=== PATIENT | female | born 1970 | race Hispanic/Latino ===

== ENCOUNTER 2020-12-13 16:01 | Emergency (ER) | payer SELFPAY ==
[~2020-12-13] VITALS: Ht 195.6 cm; Wt 113.4 kg
[2020-12-13] MEDS ORDERED: HYDROCODONE/ACETAMINOPHEN 10/325 MG TAB PO ONE (18:15)
[2020-12-13] MEDS ORDERED: TRAM1TAB PO (19:00)
[2020-12-13 19:15] VITALS: BP 132/79
[2020-12-13] MEDS ORDERED: NAPR-1180 PO (19:24)
== END 2020-12-13 19:33 | disposition home or self-care (01) ==
LOC: EDH 16:01
DX: S93.401A Sprain of unspecified ligament of right ankle, initial encounter (principal); E11.9 Type 2 diabetes mellitus without complications; I10 Essential (primary) hypertension; W01.0XXA Fall on same level from slipping, tripping and stumbling without subsequent striking against object, initial encounter; Y93.89 Activity, other specified; Y92.89 Other specified places as the place of occurrence of the external cause; Y99.8 Other external cause status
CPT/HCPCS: 73610; 73630